=== PATIENT | female | born 2000 | race Caucasian/White ===

== ENCOUNTER 2019-10-10 05:02 | Outpatient (CLI) | payer OTHER ==
[~2019-10-10] VITALS: Ht 160 cm; Wt 75.7 kg
[2019-10-10 05:45] VITALS: BP 130/77
--- NOTE | 2019-10-10 06:34 | IPNPDOC ---
Text Note Date of Service The patient was seen on 10/10/19. NOTE Patient is 18yo at 40.1wks. C/o ctx q3-5min since 1AM. No loss of fluid or bleeding. Good movement. PE: VS WNL except HR 100-120 GEN NAD, Comfortable SVE: 3/90/-2 FHT: Category 1, 130, reactive, no decels. contractions q3-5minutes. A/P: Fetus reassuring. Patient in latent labor and no rupture of membranes. She is also likely dehydrated. Will give PO hydration and recheck in 2hr. Ruthann Sánchez MD October 10, 2019 06:34
[2019-10-10 07:26] VITALS: BP 113/66
[2019-10-10 09:29] VITALS: BP 117/78
[2019-10-12] MEDS ORDERED: FENTANYL 2MCG/ML ROPIVACAINE 0.2% IN 0.9% NACL 100ML IVBAG As Ordered ONE (14:27)
== END 2019-10-10 09:37 | disposition home or self-care (01) ==
LOC: M LDO 05:02 → M LDI 10-12 11:57 → UNDOADMIN 10-12 11:57
PROVIDERS: ATTEND Obstetrics & Gynecology
DX: O26.893 Other specified pregnancy related conditions, third trimester (principal); R10.30 Lower abdominal pain, unspecified; O47.1 False labor at or after 37 completed weeks of gestation; Z3A.40 40 weeks gestation of pregnancy
CPT/HCPCS: 59025; G0378; G0463

== ENCOUNTER 2019-10-12 10:44 | Inpatient (IN) | payer OTHER ==
[~2019-10-12] VITALS: Ht 160 cm; Wt 74.1 kg
[2019-10-12 11:12] VITALS: BP 135/87
[2019-10-12] MEDS ORDERED: PRENTAB9 PO ×2 (11:22)
[2019-10-12] MEDS ORDERED: LACTATED RINGER'S 1000 ML IV STA (11:43)
[2019-10-12] MEDS ORDERED: BUTORPHANOL 2 MG/ML INJ (J0595) IV ONE (12:00)
[2019-10-12] MEDS ORDERED: LR 1,000 ML IV SCH (12:00)
--- NOTE | 2019-10-12 12:03 | HPEPDOC ---
Obstetrical History & Physical General Date of Admission 10/12/2019 History of Present Illness Mely is a 18yo with SIUP at 40w2d by 10wk u/s presenting with regular ctx all morning, getting stronger. She was evaluated here 2 days ago and was 3/90. She has had no LOF, no vaginal bleeding, good movement. No f/c/n/v/CP/SOB. Chief Complaint: Contractions, term Information Provided By: Patient Care Care: Good Care Dating Final EDC: October 10, 2019 Final EDC by: 1st trimester (US) Antepartum Course Diagnos(e)s no issues Height (inches): 63 Pre- weight (lbs.): 136 Admission Weight (lbs.): 169 Change in Weight (lbs.): 33 Past Medical History Past Obstetrical History : Past Obstetrical History: Primgravida [employer] History: No pertinent history Past Medical History Medical History benign Surgical History: Denies/None Family History Significant Family History: No pertinent family hx Social History Marital Status: Psychosocial History: No pertinent psych hx * Smoker: non-smoker Alcohol: Denies Drugs: denies Imunizations Influenza Status: current Allergies Coded Allergies: No Known Allergies (Unverified , 10/10/19) Medications Scheduled No.137/Iron/Folic Acd ( Vitamin Tablet) 1 Each Tablet, 1 TAB PO DAILY Physical Examination Physical Examination GENERAL: Alert and oriented times three. ABDOMEN: Gravid and non-tender to touch. FETUS: Is vertex (VTX) by sterile vaginal examination (SVE) EXTREMITIES: No edema of BLE Vital Signs/I&O Vital Signs Date Time Temp Pulse Resp B/P (MAP) Pulse Ox O2 Delivery O2 Flow Rate FiO2 10/12/19 11:12 98.2 97 18 135/87 (103) Pertinent Laboratoy Data Blood Type: A+ RBC Antibody Screen: Negative HIV: Negative Hepatitis B: Negative Hepatitis C: Unknown Rapid Plasma Reagin: Nonreactive Rubella: Immune Varicella: Immune Chlamydia/Gonorrhea: Negative Group B Streptococcus: Negative Glucose Tolerance Test: 118 Anatomy Ultrasound Ultrasound Date: May 23, 2019 Placenta Location: Anterior Normal Anatomy: Yes Placenta Previa: No Steroid Therapy Steroid Therapy: No Vaginal Examination Dilation: 6 cm Effacement: 100% Station: -1 Cervical Consistency: Soft Cervical Position: Anterior Presentation: Cephalic presentation Assessment Heart Rate (FHR): 130 Variability: Moderate Accelerations: Positive Decelerations: Variable (occasional, non-repetitive) Tocometer Contractions: Yes Frequency: regular, every 2-5 min. Duration: greater than 60 seconds Strength: palpated as moderate Assessment/Plan Assessment Mely is a 18yo with SIUP at 40w2d by 10wk u/s in active labor with 6/C/- 1, ctx q3-5min. Intact. Vitals wnl, benign exam. Cat I-II FHRT with mod digna, accels, and occasional variable decels. GBS negative. Plan Admit and orient. Hair Blender and consent. Diet: clear liquids Group B Streptococcus (GBS) negative Labs and intravenous (IV) per unit protocol. Lactated Ringers (LR): Bolus 1000 mL, then at 125 mL/hr. Anticipate normal spontaneous delivery () Candidate for epidural if desired, or a dose of 2mg IV stadol prior to 8cm dilation if desired Safe to proceed MD Eric Sinha Katrina D MD October 12, 2019 12:03
[2019-10-12 12:42] LABS: HEMATOCRIT 37.6 % (36.0-47.0); HEMOGLOBIN 12.3 g/dl (12.0-15.5); MEAN CORPUSCULAR HEMOGLOBIN 29.6 pg (27.0-33.0); MEAN CORPUSCULAR HGB CONC 32.7 g/dl (32.0-36.5); MEAN CORPUSCULAR VOLUME 90.4 fl (80.0-96.0); PLATELET COUNT, AUTOMATED 230 10^3/uL (150-450); RED BLOOD COUNT 4.16 10^6/uL (4.00-5.40); WHITE BLOOD COUNT 17.1 10^3/uL (4.0-10.0)
[2019-10-12 15:20] VITALS: BP 130/98
[2019-10-12] MEDS ORDERED: OXYTOCIN 30 UNITS IN 0.9% NaCl 500ML IV BAG (J2590) As Ordered ONE (15:32)
[2019-10-12 16:32] VITALS: BP 124/64
[2019-10-12 16:45] VITALS: BP 117/58
--- NOTE | 2019-10-12 17:22 | DNPDOC ---
[facility] Delivery Note Delivery Note DATE OF DELIVERY: 12 Oct 2019 PREDELIVERY DIAGNOSIS: 40w2d gestation and labor. POST DELIVERY DIAGNOSIS: Delivered. PROCEDURE: Spontaneous vaginal delivery WIRE STITCHER OPERATOR: Dr. Sia Reyes MD ANESTHESIA: 1% lidocaine for repair ESTIMATED BLOOD LOSS: 200 mL. FINDINGS: 7 pound 0 ounce (3180g) female , Score 9/9 DELIVERY SUMMARY: Mely is a 18yo [id number] s/p uncomplicated at 16:24 on 10/12/19 after presenting to L&D in active labor at 40w2d. She progressed without epidural, had SROM clear and progressed to C/C/+1, at which time she began pushing. Infant's head delivered OA, restituted CAM[place]. Left anterior shoulder delivered with ease followed by right posterior shoulder, then remainder of body delivered to maternal abdomen where was dried and stimulated; nose and mouth suctioned with bulb suction, strong, lusty cry, apgars 9/9. Terminal meconium noted. At 2 minutes of life, cord clamped x2 and cut by patient's mother. With uterine massage and traction on the cord, placenta delivered spontaneously and intact with 3 vessel centrally inserted cord. Pitocin bolus started with delivery of placenta. Fundus then firm at u-2cm with hemostasis noted. Upon inspection of va tino and perineum, small left and right labial lacerations and a very small 2mll were noted and repaired with 3-0 vicryl suture in usual fashion. Good cosmetic effect with total reapproximation and complete hemostasis noted. All counts correct x2. Mom and were doing well when I left the room. MD Eric Sinha Katrina D MD October 12, 2019 17:22
[2019-10-12] MEDS ORDERED: LIDOCAINE 1% MDV 20ML VIAL INFIL ONE (17:30)
[2019-10-12] MEDS ORDERED: ACETAMINOPHEN TAB 650MG DOSE (2X325MG) PO PRN (17:30)
[2019-10-12] MEDS ORDERED: OXYTOCIN DRIP 30 UNITS in IV 1 EA IV SCH (17:30)
[2019-10-12] MEDS ORDERED: RHOGAM 300 MCG (1500 IU) INJ (J2790) IM SCH (17:30)
[2019-10-12] MEDS ORDERED: DIBUCAINE 1% OINTMENT 30GM TOP PRN (17:30)
[2019-10-12] MEDS ORDERED: IBUPROFEN 600 MG TAB PO PRN (17:30)
[2019-10-12] MEDS ORDERED: MEASLES,MUMPS,RUBELLA VACCINE INJ (MMR-II) (90707) SC SCH (17:30)
[2019-10-12] MEDS ORDERED: DOCUSATE SODIUM 100 MG CAP PO PRN (17:30)
[2019-10-12] MEDS ORDERED: IBUPROFEN 800 MG TAB PO PRN (17:30)
[2019-10-12 18:00] VITALS: BP 124/76
[2019-10-13 05:42] VITALS: BP 110/52
[2019-10-13] MEDS: PRENATAL VITAMINS CHEWABLE TABLET PO SCH (08:08)
--- NOTE | 2019-10-13 09:53 | IPNPDOC ---
Progress Note Date of Service: October 13, 2019 Day#: 1 Progress Note PPD 1 SUBJECT: Mely is a 18yo [id number] s/p uncomplicated at 40w2d on 11 October at 16:24 after presenting in active labor, doing well day # 1. She has been ambulating, voiding spontaneously without issue and tolerating regular diet. Breast feeding without issue. Minimal discomfort. Reports lochia is like a normal period. No lightheadedness/dizziness, f/c/n/v/CP/SOB. OBJECTIVE: VITAL SIGNS: Within normal limits, afebrile. Alert and oriented times three. Abdomen: Fundus firm at U-2. Soft, NTTP. Extremities: trace edema of BLE, no pain with palpation of calves ASSESSMENT: Mely is a 18yo [id number] s/p uncomplicated at 40w2d on 11 October at 16:24 after presenting in active labor, doing well day # 1. Vitals within normal limits, afebrile, hemodynamically stable with no evidence of in fection. PLAN: 1. Routine care 2. Tylenol and Motrin for pain. 3. Encourage breast feeding and ambulation. 4. Regular diet 5. Possible discharge tomorrow if meeting all milestones Dr. Sia Reyes MD VS, I&O, 24H, [facility] Vital Signs/I&O Vital Signs Date Time Temp Pulse Resp B/P (MAP) Pulse Ox O2 Delivery O2 Flow Rate FiO2 10/13/19 05:42 98.4 98 16 110/52 (71) 10/12/19 18:00 99 Room Air I&O- Last 24 Hours up to 6 AM 10/13/19 06:00 Output Total 1000 ml Balance -1000 ml Laboratory Data 24H LABS Laboratory Tests 2 10/12/19 12:33: Nucleated Red Blood Cells % (auto) 0.0 CBC/BMP Laboratory Tests 10/12/19 12:33 Sia Reyes MD October 13, 2019 09:53
[2019-10-13] MEDS: ACETAMINOPHEN 500 MG TAB PO PRN ×2 (12:38→23:34)
[2019-10-13 17:38] VITALS: BP 103/60
[2019-10-14 06:00] VITALS: BP 114/72
[2019-10-14] MEDS ORDERED: DOCU100C16 PO (07:15)
[2019-10-14] MEDS ORDERED: DIBU10OI TOP (07:15)
[2019-10-14] MEDS ORDERED: IBUP80TA PO (07:15)
[2019-10-14] MEDS: PRENATAL VITAMINS CHEWABLE TABLET PO SCH (08:05)
--- NOTE | 2019-10-15 17:33 | DSES ---
DATE OF ADMISSION: 10/12/2019 DATE OF DISCHARGE: 10/14/2019 A 18-year-old 1, now para 1, admitted at 40 and two weeks of gestation with contractions, had a spontaneous vaginal delivery of a live female , 7 pounds, 0 ounces, 3180 grams, scores of 9 and 9 at one and five minutes respectively. Discharge blood pressure 114/72, respirations 18, pulse 91, temperature is 97.7. Her admitting hemoglobin was 12.3, hematocrit 37.6 and platelets were 230. We discussed phlebitis, cystitis, mastitis, endometritis and cellulitis, diet, exercise, pain management, perineal, breast and wound care. On examination, normocephalic, atraumatic. Neck: Full range of motions. Pupils equal and reactive to light. Distal pulses are symmetric. No evidence of deep vein thrombosis (DVT), pulmonary embolism (PE) or superficial phlebitis. Chest is clear bilaterally to bases. No wheezes or rhonchi. No costovertebral angle (CVA) tenderness. Abdomen: Soft. Uterus 2 below. Lochia is moderate. Four quadrant bowel sounds are noted. Perineum is intact. In summary, we have a term gestation, delivered a live female . Plans are to picket labor union medications at [place], six-week checkup at [facility] ([facility]), baby to be taken to [facility]. All questions were answered. A 20-minute discussion.
== END 2019-10-14 12:20 | disposition home or self-care (01) | DRG 807 ==
LOC: M LDO 10:44 → M LDI 11:43 → M OBS 18:20
PROVIDERS: ADMIT Obstetrics & Gynecology; ATTEND Obstetrics & Gynecology
PROC: 10E0XZZ Delivery of Products of Conception, External Approach (ICD-10-PCS; principal; 2019-10-12)
PROC: 0KQM0ZZ Repair Perineum Muscle, Open Approach (ICD-10-PCS; 2019-10-12)
PROC: 0HQ9XZZ Repair Perineum Skin, External Approach (ICD-10-PCS; 2019-10-12)
DX: O48.0 Post-term pregnancy (principal); Z37.0 Single live birth; Z3A.40 40 weeks gestation of pregnancy; O77.0 Labor and delivery complicated by meconium in amniotic fluid; O70.0 First degree perineal laceration during delivery; O70.1 Second degree perineal laceration during delivery